=== PATIENT | male | born 1945 | race Caucasian/White ===

== ENCOUNTER 2022-01-16 19:11 | Outpatient (REF) | payer OTHER, SELFPAY ==
[2022-01-16 21:36] LABS: ALT 26 U/L (16-63); AST 24 U/L (15-37); Albumin 4.2 g/dL (3.4-5.0); Alkaline Phosphatase 58 U/L (46-116); Anion Gap 4.6 mmol/L (3-11); BUN 30 mg/dL (7-18); Bilirubin, Total 0.5 mg/dL (0.2-1.0); CO2 30.4 mmol/L (21.0-32.0); CREATININE 1.1 mg/dL (0.70-1.30); Calcium 9.1 mg/dL (8.5-10.1); Calculated LDL 104 mg/dL (<100); Chloride 102 mmol/L (98-107); Cholesterol 187 mg/dL (<200); Glucose 91 mg/dL (74-106); HDL Cholesterol 52 mg/dL (40-60); Potassium 4.4 mmol/L (3.5-5.1); Sodium 137 mmol/L (136-145); Total Protein 6.9 g/dL (6.4-8.2); Triglyceride 159 mg/dL (<150)
[2022-01-16 21:39] LABS: Hemoglobin A1C 5.8 % (<5.7)
== END 2022-01-16 19:12 | disposition home or self-care (01) ==
LOC: NCHCN 19:11
PROVIDERS: Visit Provider Nurse Practitioner Family
DX: Z00.00 Encounter for general adult medical examination without abnormal findings (principal); I10 Essential (primary) hypertension; E78.5 Hyperlipidemia, unspecified; Z13.1 Encounter for screening for diabetes mellitus
CPT/HCPCS: 80053; 80061; 83036

== ENCOUNTER 2023-03-24 16:39 | Outpatient (REF) | payer OTHER, SELFPAY ==
[2023-03-24 22:19] LABS: ALT 14 U/L (16-63); AST 15 U/L (15-37); Albumin 4.1 g/dL (3.4-5.0); Alkaline Phosphatase 52 U/L (46-116); Anion Gap 6.7 mmol/L (3-11); BUN 15 mg/dL (7-18); Bilirubin, Total 0.6 mg/dL (0.2-1.0); CO2 29.3 mmol/L (21.0-32.0); CREATININE 1.2 mg/dL (0.70-1.30); Calcium 9.3 mg/dL (8.5-10.1); Calculated LDL 181 mg/dL (<100); Chloride 99 mmol/L (98-107); Cholesterol 255 mg/dL (<200); Estimated GFR 63.07 (mL/min/1.73m2); Glucose 95 mg/dL (74-106); HDL Cholesterol 60 mg/dL (40-60); Potassium 4.1 mmol/L (3.5-5.1); Sodium 135 mmol/L (136-145); Total Protein 6.6 g/dL (6.4-8.2); Triglyceride 74 mg/dL (<150)
== END 2023-03-24 16:40 | disposition home or self-care (01) ==
LOC: NCHCN 16:39
PROVIDERS: Visit Provider Nurse Practitioner Family
DX: I10 Essential (primary) hypertension (principal); E78.5 Hyperlipidemia, unspecified; R63.4 Abnormal weight loss; Z12.5 Encounter for screening for malignant neoplasm of prostate
CPT/HCPCS: 80053; 80061; 84153

== ENCOUNTER 2024-03-13 13:32 | Outpatient (REF) | payer MEDICARE, OTHER, SELFPAY ==
[2024-03-13 14:39] LABS: HCT 42.5 % (40.0-50.0); HGB 14.7 g/dL (13.5-17.5); MCHC 34.6 % (32.0-36.0); MCV 90 fL (80-95); MPV 9.1 fL (8.0-11.0); Platelet Count 194 10^3/uL (130-400); RBC 4.74 10^6/uL (4.36-5.78); RDW-SD 43.1 fL; WBC 3.37 10^3/uL (4.4-10.8)
[2024-03-13 15:04] LABS: ALT 26 U/L (16-63); AST 22 U/L (15-37); Alkaline Phosphatase 57 U/L (46-116); Anion Gap 4.5 mmol/L (3-11); BUN 24 mg/dL (7-18); Bilirubin, Total 0.49 mg/dL (0.2-1.0); CO2 30.5 mmol/L (21.0-32.0); CREATININE 1.1 mg/dL (0.70-1.30); Calcium 9.1 mg/dL (8.5-10.1); Calculated LDL 87 mg/dL (<100); Chloride 102 mmol/L (98-107); Cholesterol 155 mg/dL (<200); Estimated GFR 69.57 (mL/min/1.73m2); Glucose 117 mg/dL (74-106); HDL Cholesterol 60 mg/dL (40-60); Potassium 4.8 mmol/L (3.5-5.1); Sodium 137 mmol/L (136-145); Total Protein 6.9 g/dL (6.4-8.2); Triglyceride 43 mg/dL (<150)
== END 2024-03-13 13:33 | disposition home or self-care (01) ==
LOC: NCHCN 13:32
PROVIDERS: PCP Nurse Practitioner Family; Visit Provider Nurse Practitioner Family
DX: Z00.00 Encounter for general adult medical examination without abnormal findings (principal); E78.5 Hyperlipidemia, unspecified
CPT/HCPCS: 80053; 80061; 85027

== ENCOUNTER 2025-04-02 16:40 | Outpatient (REF) | payer MEDICARE, OTHER, SELFPAY ==
[2025-04-02 14:38] LABS: Hemoglobin A1C 5.6 % (<5.7)
[2025-04-02 15:02] LABS: ALT 18 U/L (16-63); AST 26 U/L (15-37); Albumin 4.1 g/dL (3.4-5.0); Alkaline Phosphatase 47 U/L (46-116); Anion Gap 8.4 mmol/L (3-11); BUN 16 mg/dL (7-18); Bilirubin, Total 0.6 mg/dL (0.2-1.0); CO2 28.6 mmol/L (21.0-32.0); Calcium 9.4 mg/dL (8.5-10.1); Calculated LDL 88 mg/dL (<100); Chloride 100 mmol/L (98-107); Cholesterol 154 mg/dL (<200); Estimated GFR 77.52 (mL/min/1.73m2); Glucose 102 mg/dL (74-106); HDL Cholesterol 50 mg/dL (>or=40); Potassium 4.3 mmol/L (3.5-5.1); Sodium 137 mmol/L (136-145); Total Protein 7.0 g/dL (6.4-8.2); Triglyceride 80 mg/dL (<150)
[2025-04-02 15:45] LABS: COMMENT (LAB VIEW ONLY) 118.47 mg/dL; Microalb ug/mg Crea 94.5 ug/mg Cr
== END 2025-04-02 16:41 | disposition home or self-care (01) ==
LOC: NCHCN 16:40
PROVIDERS: PCP Nurse Practitioner Family; Visit Provider Nurse Practitioner Family
DX: E78.5 Hyperlipidemia, unspecified (principal); R73.03 Prediabetes
CPT/HCPCS: 80053; 80061; 82043; 82570; 83036